=== PATIENT | male | born 1990 | race Two or more races ===

== ENCOUNTER 2024-02-02 20:39 | Emergency (ER) | payer OTHER ==
[~2024-02-02] VITALS: Ht 172.7 cm; Wt 86.2 kg
[2024-02-02 20:43] VITALS: BP 142/82
[2024-02-02] MEDS ORDERED: COZAAR25 MG PO (20:43)
[2024-02-02 22:05] LABS: HEMATOCRIT 43.9 % (39.0-48.0); HEMOGLOBIN 15.2 g/dL (13-16.00); MEAN CELL VOLUME 90.7 fL (80.0-100.00); MEAN CORPUSCULAR HEMOGLOBIN 31.3 pg (27.00-32.0); MEAN CORPUSCULAR HGB CONC 34.5 g/dl (32.0-36.0); PLATELET COUNT 189 K/uL (150-450); RED BLOOD COUNT 4.84 M/uL (4.00-6.00); RED CELL DISTRIBUTION WIDTH 13.1 % (11.5-14.5)
[2024-02-02 22:17] LABS: CALCIUM 9.5 mg/dL (8.5-10.1); CREATININE SERUM 1.06 mg/dL (0.70-1.30); GFR 80.46; INR 1.04; PARTIAL THROMBOPLASTIN TIME 27.3 SECONDS (22.0-34.0); POTASSIUM 3.45 mEq/L (3.5-5.1); PROTHROMBIN TIME 11.3 SECONDS (9.0-11.5)
[2024-02-02 22:23] VITALS: O2SAT 100
== END 2024-02-02 22:50 | disposition home or self-care (01) ==
LOC: ER 20:41
PROVIDERS: Emergency Medicine
DX: R00.2 Palpitations (principal); Z91.041 Radiographic dye allergy status; F12.180 Cannabis abuse with cannabis-induced anxiety disorder